=== PATIENT | male | born 1960 | race Hispanic/Latino ===

== ENCOUNTER 2017-04-22 06:34 | Observation (INO) | payer MEDICAID ==
--- NOTE | 2017-04-22 07:55 | ED PDOC ---
Arrival/HPI - General Chief Complaint: Lower Extremity Problem/Injury Time Seen by Provider: 04/22/17 07:31 - History of Present Illness Narrative History of Present Illness (Text): 04/22/17 07:35 Tyree Garcia is a 56 year old male, whose past medical history includes depression, who presents to the emergency department complaining of feeling a sensation of pins and needles to his bilateral feet since last night. Patient says symptoms began while walking home and was unable to climb up stairs due to numbness in his feet b/L. Patient confirms that he was drinking last night but states that he only drinks on occasion. Patient also takes note that his feet occasionally swells but it goes away. He says that tingling sensation has resolved. Patient denies any fever, chills, chest pain, shortness of breath, nausea, vomiting, diarrhea, urinary symptoms, back pain, neck pain, headache, dizziness, or any other complaints. PMD: Dr. Triston Thompson Time/Duration: 4-6 hours Symptom Onset: Gradual Symptom Course: Unchanged Severity Level: Mild Activities at Onset: Light Context: Home Past Medical History - Provider Review Nursing Documentation Reviewed: Yes - Musculoskeletal/Rheumatological Hx Musculoskeletal Disorders: Yes Hx Arthritis: Yes - Psychiatric Hx Anxiety: Yes Hx Depression: Yes Hx Substance Use: No Family/Social History - Physician Review Nursing Documentation Reviewed: Yes Family/Social History: No Known Family HX Smoking Status: Smoker Currrent Status Unknown Hx Alcohol Use: Yes Frequency of alcohol use: Daily Hx Substance Use: No Allergies/Home Meds Allergies/Adverse Reactions: Allergies No Known Allergies Allergy (Verified 04/22/17 06:38) Home Medications: Home Meds Medication Instructions Recorded Confirmed Amitriptyline [Elavil] 50 mg PO HS 04/22/17 04/22/17 clonazePAM [clonAZEPAM] 0.5 mg PO HS 04/22/17 04/22/17 Review of Systems - Physician Review All systems were reviewed & negative as marked: Yes - Review of Systems Constitutional: absent: Fevers, Night Sweats Eyes: absent: Vision Changes ENT: absent: Hearing Changes Respiratory: absent: SOB Cardiovascular: absent: Chest Pain Gastrointestinal: absent: Abdominal Pain Genitourinary Male: absent: Urinary Output Changes Musculoskeletal: absent: Back Pain, Neck Pain Skin: absent: Rash Neurological: Other (Numbness and "Pins and Sarah Ann" sensation to bilateral feet ) Hemo/Lymphatic: absent: Adenopathy Psychiatric: absent: Anxiety Physical Exam Vital Signs Reviewed: Yes Vital Signs Temp Pulse Resp BP Pulse Ox 04/22/17 09:05 111 H 18 127/97 H 96 04/22/17 06:55 98.3 F 103 H 17 126/67 95 Temperature: Afebrile Blood Pressure: Normal Pulse: Tachycardic Respiratory Rate: Normal Appearance: Positive for: Well-Appearing, Non-Toxic, Comfortable, Other ( Alcohol on breath) Pain Distress: None Mental Status: Positive for: Alert and Oriented X 3 - Systems Exam Head: Present: Atraumatic, Normocephalic Pupils: Present: PERRL Conjunctiva: Present: Normal Mouth: Present: Moist Mucous Membranes Pharnyx: Present: Normal. No: ERYTHEMA, EXUDATE Neck: Present: Normal Range of Motion Respiratory/Chest: Present: Clear to Auscultation, Good Air Exchange. No: Respiratory Distress, Accessory Muscle Use Cardiovascular: Present: Regular Rate and Rhythm, Normal S1, S2. No: Murmurs Abdomen: Present: Normal Bowel Sounds. No: Tenderness, Distention, Peritoneal Signs Back: Present: Normal Inspection Upper Extremity: Present: Normal Inspection. No: Cyanosis, Edema Lower Extremity: Present: Swelling (Left LE is larger than Right LE), Erythema ( There is a mild papular eyrythematous rash b/L medial shins with minimal warmth) , Other (DP and PT pulses are present b/L by doppler). No: Tenderness, Temperature Abnormalties Neurological: Present: GCS=15, CN II-XII Intact, Speech Normal Skin: Present: Rashes (Small papular rash to bilateral shins (pt says that this is chronic)), Other (Blood blister (isolated hemorrhagic bullous about 3-4 cm in diameter) to medial side of distal left pickett) Psychiatric: Present: Alert, Oriented x 3, Normal Insight, Normal Concentration Medical Decision Making ED Course and Treatment: 04/22/17 07:35 Impression: 56 year old male complaining of feeling a sensation of pins and needles to his bilateral feet since last night. Differential Diagnosis included but are not limited to: ETOH abuse vs. electrolyte abnormality vs. DVT. vs. dehydration Plan: -- Chest X-ray -- LE ultrasound -- Urinalysis -- Labs -- Folic Acid -- Reassess and disposition Progress Notes: 04/22/17 10:41 Patient with etoh on board with level 132; he denies regular alcohol use. He is clinically sober at this time. Patient with no evidence of DVT in LE and labs are unremarkable. Exam with pulses present. Also of note is the is an isolated blood blister (possibly due to friction). Remainder of exam is unremarkable. Rash is potentially chronic but given mild warmth - will d/c on cefadroxil for possible cellulitis and topical steroid for the isolated hemorrhagic bullous nd f/u with podiatry, dermatology, and medical clinic. - Lab Interpretations Lab Results: 04/22/17 08:55 04/22/17 08:55 Lab Results 04/22/17 08:55: Alcohol, Quantitative 132 H 04/22/17 08:55: Sodium 132, Potassium 4.1, Chloride 95 L, Carbon Dioxide 24, Anion Gap 17, BUN 8, Creatinine 0.6, Est GFR ( Amer) > 60, Est GFR (Non- Af Amer) > 60, Random Glucose 104, Calcium 8.7, Magnesium 1.7, Total Bilirubin 0.5, AST 43, ALT 32, Alkaline Phosphatase 81, Lactate Dehydrogenase 735 H, Total Creatine Kinase 215, Troponin I < 0.01, NT-Pro-B Natriuret Pep 117, Total Protein 7.5, Albumin 4.2, Globulin 3.3, Albumin/Globulin Ratio 1.3, Lipase 26 04/22/17 08:55: WBC 8.2, RBC 3.38 L, Hgb 10.3 L, Hct 29.0 L, MCV 85.8, MCH 30.5 , MCHC 35.5, RDW 12.3, Plt Count 156, MPV 8.8, Gran % 88.0 H, Lymph % (Auto) 6.7 L, Talbot % (Auto) 5.3, Eos % (Auto) 0.0 L, Baso % (Auto) 0.0, Gran # 7.21 H, Lymph # 0.6 L, Talbot # 0.4, Eos # 0.0, Baso # 0.00 I have reviewed the lab results: Yes - RAD Interpretation Radiology Orders: 04/22/17 07:56 CHEST TWO VIEWS (PA/LAT) [RAD] Stat 04/22/17 07:58 DUPLEX LOWER EXTRM VEIN BILAT [US] Stat - Medication Orders Current Medication Orders: Discontinued Medications Folic Acid 1 mg/ Thiamine HCl 100 mg/ Multivitamins/Vitamin C 10 ml/ Dextrose/ Sodium Chloride 1,011.2 mls @ 500 mls/hr IV ONCE ONE Stop: 04/22/17 09:59 Last Admin: 04/22/17 09:33 Dose: 500 mls/hr - Scribe Statement The provider has reviewed the documentation as recorded by the Devenibmukesh Contreras Provider Scribe Attestation: All medical record entries made by the Scribe were at my direction and personally dictated by me. I have reviewed the chart and agree that the record accurately reflects my personal performance of the history, physical exam, medical decision making, and the department course for this patient. I have also personally directed, reviewed, and agree with the discharge instructions and disposition. Disposition/Present on Arrival - Present on Arrival Any Indicators Present on Arrival: No History of DVT/PE: No History of Uncontrolled Diabetes: No Urinary Catheter: No History of Decub. Ulcer: No History Surgical Site Infection Following: None - Disposition Have Diagnosis and Disposition been Completed?: Yes Diagnosis: Tingling, Alcohol use, Rash, Blood blister Disposition: HOME/ ROUTINE Disposition Time: 10:50 Patient Plan: Discharge Condition: GOOD Additional Instructions: Take the medication as prescribed. Follow up with podiatry, dermatology, and in the medical clinic. Maintain sd wrap at the area of the blood blister to avoid friction. Avoid alcohol use. Return to the emergency department if any new concerning symptoms. Prescriptions: Cefadroxil [Duricef] 1 cap PO BID #20 cap Triamcinolone 0.1% [Triamcinolone 0.1% Cream] 1 cre TP TID #30 gm Referrals: Triston Thompson MD [Primary Care Provider] - Follow up with primary [facility] at [facility] [Outside] - Follow up with primary Lisa Negrete MD [Staff Provider] - Follow up with primary Kya Beltran DPM [Staff Provider] - Follow up with primary Forms: [employer] (Macedonian)
[2017-04-22] MEDS ORDERED: Folic Acid 1 MG, Thiamine 100 MG, Multivitamin (MVI) 10 ML in Dextrose 5%/0.45% NS 1,00... IV ONE (07:58)
[2017-04-22 09:07] LABS: GRAN # 7.21 (1.4-6.5); HEMOGLOBIN 10.3 gm/dL (14.0-18.0); LYMPH # 0.6 (1.2-3.4); LYMPH % 6.7 % (22.0-35.0); MEAN CELL VOLUME 85.8 fL (80.0-105.0); MEAN CORPUSCULAR HEMOGLOBIN 30.5 pg (25.0-35.0); MEAN CORPUSCULAR HGB CONC 35.5 g/dl (31.0-37.0); MEAN PLATELET VOLUME 8.8 fl (7.0-11.0); MONO # 0.4 (0.1-0.6); MONO % 5.3 % (1.0-6.0); PLATELET COUNT 156 10^3/uL (120.0-450.0); RBC 3.38 10^6/uL (3.5-6.1); RED CELL DISTRIBUTION WIDTH 12.3 % (11.5-14.5); WHITE BLOOD COUNT 8.2 10^3/ul (4.5-11.0)
--- NOTE | 2017-04-22 09:29 | US ---
HISTORY: Leg pain and swelling. Evaluate for DVT PHYSICIAN(S): Abhilash Bill MD. TECHNIQUE: Duplex sonography and color-flow Doppler with graded compression were used to evaluate the deep venous systems of both lower extremities. The calf veins are not well visualized due to edema FINDINGS: The visualized deep venous systems of both lower extremities are sonographically normal and compressible. Normal wave forms and augmentation are seen. There is no sonographic evidence for deep venous thrombosis in the visualized segments of both lower extremities. IMPRESSION: No sonographic evidence for deep venous thrombosis in the visualized segments of both lower extremities. Limited study
[2017-04-22 09:33] LABS: ALB/GLOB RATIO 1.3 (1.1-1.8); ALBUMIN 4.2 g/dL (3.0-4.8); ALT/SGPT 32 U/L (7-56); AST/SGOT 43 U/L (15-59); BLOOD UREA NITROGEN 8 mg/dL (7-21); CALCIUM 8.7 mg/dL (8.4-10.5); GFR AFRICAN-AMERICAN > 60; GFR NON-AFRICAN AMERICAN > 60; LIPASE 26 U/L (23-300); MAGNESIUM 1.7 mg/dL (1.7-2.2)
[2017-04-22 09:44] LABS: B-TYPE NATRIURETIC PEPTIDE 117 pg/mL (0-450)
[2017-04-22 10:01] LABS: TROPONIN I < 0.01 ng/mL
--- NOTE | 2017-04-22 10:26 | RAD ---
HISTORY: LE swelling COMPARISON: No prior. TECHNIQUE: Chest PA and lateral FINDINGS: LUNGS: No active pulmonary disease. PLEURA: No significant pleural effusion identified. No pneumothorax apparent. CARDIOVASCULAR: Normal. OSSEOUS STRUCTURES: No significant abnormalities. VISUALIZED UPPER ABDOMEN: Normal. OTHER FINDINGS: None. IMPRESSION: No active disease.
[2017-04-22 10:50] LABS: URINE BILIRUBIN NEGATIVE (NEGATIVE); URINE BLOOD NEGATIVE (NEGATIVE); URINE GLUCOSE (UA) NEGATIVE (NEGATIVE); URINE LEUKOCYTE ESTERASE NEGATIVE Leu/uL (NEGATIVE); URINE NITRATE NEGATIVE (NEGATIVE); URINE PROTEIN NEGATIVE mg/dL (<30 mg/dL); URINE UROBILINOGEN 0.2 E.U./dL (<1 E.U./dL)
[2017-04-22 10:51] LABS: URINE APPEARANCE CLEAR (CLEAR); URINE COLOR LIGHT YELLOW (YELLOW)
[2017-04-22] MEDS ORDERED: Oxycodone/Acetaminophen 5/325 mg Tab PO STA (12:18)
[2017-04-22] MEDS ORDERED: Sodium Chloride 0.9% 1,000 ML IV STA (15:51)
[2017-04-22] MEDS ORDERED: cefTRIAXone 1 gm 1 GM/100 ML BAG IV STA (15:57)
[2017-04-22] MEDS ORDERED: Vancomycin 1gm in NS 250ml 1 GM/250 ML BAG IVPB STA (16:06)
--- NOTE | 2017-04-22 20:41 | CARD ---
APPROVED REPORT EKG Measurement Heart [id number] <Conclusion> Sinus tachycardia with PVCs Right bundle branch block Abnormal ECG
[2017-04-22 22:03] VITALS: BMI 24.4
[2017-04-22] MEDS ORDERED: Pneumococcal 23-Valent Vaccine IM ONE (22:03)
[2017-04-23 07:21] LABS: BASO # 0.01 K/mm3 (0.0-2.0); BASO % 0.2 % (0.0-3.0); EOS % 0.6 % (1.5-5.0); GRAN # 2.97 (1.4-6.5); GRAN % 60.1 % (50.0-68.0); HEMOGLOBIN 9.3 gm/dL (14.0-18.0); LYMPH # 1.1 (1.2-3.4); LYMPH % 21.3 % (22.0-35.0); MEAN CELL VOLUME 87.1 fL (80.0-105.0); MEAN CORPUSCULAR HEMOGLOBIN 30.1 pg (25.0-35.0); MEAN CORPUSCULAR HGB CONC 34.6 g/dl (31.0-37.0); MEAN PLATELET VOLUME 9.5 fl (7.0-11.0); MONO # 0.9 (0.1-0.6); MONO % 17.8 % (1.0-6.0); PLATELET COUNT 152 10^3/uL (120.0-450.0); RBC 3.09 10^6/uL (3.5-6.1); RED CELL DISTRIBUTION WIDTH 12.6 % (11.5-14.5); WHITE BLOOD COUNT 4.9 10^3/ul (4.5-11.0)
[2017-04-23 08:09] LABS: ALB/GLOB RATIO 1.2 (1.1-1.8); ALBUMIN 3.6 g/dL (3.0-4.8); ALT/SGPT 28 U/L (7-56); AST/SGOT 32 U/L (15-59); BLOOD UREA NITROGEN 10 mg/dL (7-21); CALCIUM 8.9 mg/dL (8.4-10.5); GFR AFRICAN-AMERICAN > 60; GFR NON-AFRICAN AMERICAN > 60; MAGNESIUM 1.9 mg/dL (1.7-2.2)
[2017-04-23] MEDS: Multivitamin Therapeutic Tab PO SCH (08:35)
[2017-04-23] MEDS: Vancomycin 1gm in NS 250ml 1 GM/250 ML BAG IVPB SCH (10:25)
[2017-04-23] MEDS: Potassium & Sodium Phosphate PO SCH ×2 (10:25→18:06)
[2017-04-23] MEDS: Ampicillin/Sulbactam 3 GM in Sodium Chloride 0.9% 100 ML IVPB SCH ×3 (12:30→23:27)
--- NOTE | 2017-04-23 13:54 | CP.PCM.CON ---
Past Patient History - Past Social History Smoking Status: Former Smoker - CARDIAC Hx Cardiac Disorders: No - PULMONARY Hx Respiratory Disorders: Yes (SMOKED CIGARETTES USED TO SMOKE PPD LASTS FOR 3 D.) - NEUROLOGICAL Hx Neurological Disorder: No - HEENT Hx HEENT Problems: No - RENAL Hx Chronic Kidney Disease: No - ENDOCRINE/METABOLIC Hx Endocrine Disorders: No - HEMATOLOGICAL/ONCOLOGICAL Hx Blood Disorders: No - INTEGUMENTARY Hx Dermatological Problems: Yes Other/Comment: 04-22-17 BILATERAL LEG EDEMA MORE TO LEFT. PT HAD A MECHANICAL FALL.TRIPPED AND FELL. LEFT LEG EDEMA +3 PITTING.WITH MULTIPLE LARGE FLUID FILLED BLISTER TO LOWER PART OF LEG AND BALLESTEROS BONE FRONT AND BACK. INTACT LARGE BLISTER. ONE HAS OPENED COVERED WITH NON STICK DRESSING. RIGHT LEG EDEMA +2 .BILATERAL LEG HAS MULTIPLE REDSPOTS TO SKIN AND HAS BROWNISH SKIN DISCOLORATION. - MUSCULOSKELETAL/RHEUMATOLOGICAL Hx Musculoskeletal Disorders: Yes Hx Arthritis: Yes Hx Falls: Yes Hx Fractures: Yes (RIGHT FOOT HAS A PLATE FROM FALLING IN THE SNOW.) Hx Unsteady Gait: Yes - GASTROINTESTINAL Hx Gastrointestinal Disorders: No - GENITOURINARY/GYNECOLOGICAL Hx Genitourinary Disorders: No - PSYCHIATRIC Hx Psychophysiologic Disorder: Yes (DRINKS RHUM AND COKE,DRINKS OCCASIONALLY TO DAILY.SMOKED CIGARETTES,HEROINE) Hx Anxiety: Yes Hx Depression: Yes Hx Substance Use: Yes (HEROINE ABUSE-ON METH PROGRAM FOR 20 YRS.[facility]FAITH [place] ON METH 35 MG.) Other/Comment: PT ON METH PROGRAM IN [place] ON 35 MG.HAS BEEN THERE FOR 20 YRS. - SURGICAL HISTORY Hx Surgeries: Yes (RIGHT LEG ,HAS A PLATE.) Meds Allergies/Adverse Reactions: Allergies Allergy/AdvReac Type Severity Reaction Status Date / Time No Known Allergies Allergy Verified 04/22/17 19:40 - Medications Medications: Current Medications Amitriptyline HCl (Elavil) 50 mg PO HS SANTY Clonazepam (Klonopin) 0.5 mg PO HS SANTY PRN Reason: Protocol Folic Acid (Folic Acid) 1 mg PO DAILY SANTY Last Admin: 04/23/17 10:24 Dose: 1 mg Vancomycin HCl (Vancomycin 1gm) 1 gm in 250 mls @ 167 mls/hr IVPB DAILY SANTY PRN Reason: Protocol Last Admin: 04/23/17 10:25 Dose: 167 mls/hr Ampicillin Sodium/Sulbactam (Sodium 3 gm/ Sodium Chloride) 100 mls @ 200 mls/ hr IVPB Q6 SANTY PRN Reason: Protocol Last Admin: 04/23/17 12:30 Dose: 200 mls/hr Lorazepam (Ativan) 1 mg IVP Q4H PRN; Protocol PRN Reason: Symptoms of alcohol withdrawl Methadone HCl 30 mg/ Methadone (HCl 5 mg) 35 mg PO DAILY [facility] Last Admin: 04/23/17 13:51 Dose: Not Given Multivitamins (Thera Tab) 1 tab PO 0800 [facility] Last Admin: 04/23/17 08:35 Dose: Not Given Potassium Phos/Sodium Phos (Neutra-Phos) 1 pkt PO BID [facility] Last Admin: 04/23/17 10:25 Dose: 1 pkt Thiamine HCl (Vitamin B1 Tab) 100 mg PO DAILY [facility] Last Admin: 04/23/17 10:25 Dose: 100 mg Results - Vital Signs Recent Vital Signs: Last Vital Signs Temp 99.5 F 04/23/17 06:00 Pulse 116 H 04/23/17 06:00 Resp 18 04/23/17 06:00 BP 150/95 H 04/23/17 06:00 Pulse Ox 95 04/23/17 06:00 - Labs Result Diagrams: 04/23/17 06:30 04/23/17 06:30 Labs: Laboratory Results - last 24 hr 04/23/17 04/23/17 06:30 06:30 WBC 4.9 D RBC 3.09 L Hgb 9.3 L Hct 26.9 L MCV 87.1 MCH 30.1 MCHC 34.6 RDW 12.6 Plt Count 152 MPV 9.5 Gran % 60.1 Lymph % (Auto) 21.3 L [place] % (Auto) 17.8 H Eos % (Auto) 0.6 L Baso % (Auto) 0.2 Gran # 2.97 Lymph # 1.1 L [place] # 0.9 H Eos # 0.0 Baso # 0.01 Sodium 136 Potassium 4.2 Chloride 100 Carbon Dioxide 25 Anion Gap 15 BUN 10 Creatinine 0.7 Est GFR ( Amer) > 60 Est GFR (Non-Af Amer) > 60 Random Glucose 113 H Calcium 8.9 Phosphorus 2.2 L Magnesium 1.9 Total Bilirubin 0.7 AST 32 ALT 28 Alkaline Phosphatase 73 Total Protein 6.6 Albumin 3.6 Globulin 3.0 Albumin/Globulin Ratio 1.2
[2017-04-23] MEDS: Morphine 2 mg/ml ISec IM PRN ×2 (15:21→21:19)
--- NOTE | 2017-04-23 15:55 | RAD ---
PROCEDURE: Left ankle dated 04/15/2017 Three views of the left ankle performed. HISTORY: Status post fall. COMPARISON: None FINDINGS: BONES: The current study reveals comminuted intra-articular fractures of the distal right tibia and fibula with surrounding soft tissue swelling. There is are tilting of the the tibiotalar articulation. . Consider followup CT scan of the left ankle to exclude additional fractures including fracture of the talus. JOINTS: As above SOFT TISSUES: Diffuse bilateral soft tissue swelling OTHER FINDINGS: None. IMPRESSION: Comminuted intra-articular fractures of the distal right tibia and fibula with surrounding soft tissue swelling. There is are tilting of the the tibiotalar articulation. . Consider followup CT scan of the left ankle to exclude additional fractures including fracture of the talus. . Surrounding bilateral soft tissue swelling.
--- NOTE | 2017-04-23 17:57 | CP.PCM.PCO ---
Physician Communication Note - Physician Communication Note Physician Communication Note: Spoke to Dr. Jarret Cormier to get in touch with Podiatry for heel stabilizer.
--- NOTE | 2017-04-23 22:22 | CP.PCM.HP ---
<ARELIS RENE - Last Filed: 04/23/17 22:11> History of Present Illness - History of Present Illness History of Present Illness: CC: Leg parathesias/RLE swelling HPI: Mr. Smith is a 56 year old male, whose past medical history includes depression, alcohol abuse and IVDU, presented to the [facility] ED complaining of a sensation of pins and needles to his feet bilaterally since last night. Patient says symptoms began while walking home and was unable to climb up stairs due to numbness. Patient confirms that he was drinking last night but states that he only drinks on occasion. Patient also takes note that his feet occasionally swell but that it normally goes away without intervention. Shortly after presenting, patient stated that tingling sensation has resolved and ED attempted discharge. During this process, patient became weak and tachycardic with increasing pain to his lower right extremity. He admitted to being on methadone, per protocol with his methadone program in [place]. Initially this was thought to be possible RLE cellulitis so patient was started on vancomycin and rocephin, as well as his normal dose of methadone. He was admitted to telemetry for observation. Currently, patient complains of RLE extremity pain that is moderately controlled with IV pain medication. He has no other complaints at this time. Patient denies any fever, chills, chest pain, shortness of breath, nausea, vomiting, diarrhea, urinary symptoms, back pain, neck pain, headache, dizziness , or any other complaints. PMH: Depression, Alcohol Abuse, IVDU (2 years clean according to patient) PSH: None FamHx: non-contributory SocHX: non-smoker, significant alcohol use, former IVDU Allergies: NKDA Home Meds: Elavil and Methadone Present on Admission - Present on Admission Any Indicators Present on Admission: No Review of Systems - Review of Systems Review of Systems: Please refer to HPI Past Patient History - Past Social History Smoking Status: Former Smoker - CARDIAC Hx Cardiac Disorders: No - PULMONARY Hx Respiratory Disorders: Yes (SMOKED CIGARETTES USED TO SMOKE PPD LASTS FOR 3 D.) - NEUROLOGICAL Hx Neurological Disorder: No - HEENT Hx HEENT Problems: No - RENAL Hx Chronic Kidney Disease: No - ENDOCRINE/METABOLIC Hx Endocrine Disorders: No - HEMATOLOGICAL/ONCOLOGICAL Hx Blood Disorders: No - INTEGUMENTARY Hx Dermatological Problems: Yes Other/Comment: 04-22-17 BILATERAL LEG EDEMA MORE TO LEFT. PT HAD A MECHANICAL FALL.TRIPPED AND FELL. LEFT LEG EDEMA +3 PITTING.WITH MULTIPLE LARGE FLUID FILLED BLISTER TO LOWER PART OF LEG AND BALLESTEROS BONE FRONT AND BACK. INTACT LARGE BLISTER. ONE HAS OPENED COVERED WITH NON STICK DRESSING. RIGHT LEG EDEMA +2 .BILATERAL LEG HAS MULTIPLE REDSPOTS TO SKIN AND HAS BROWNISH SKIN DISCOLORATION. - MUSCULOSKELETAL/RHEUMATOLOGICAL Hx Musculoskeletal Disorders: Yes Hx Arthritis: Yes Hx Falls: Yes Hx Fractures: Yes (RIGHT FOOT HAS A PLATE FROM FALLING IN THE SNOW.) Hx Unsteady Gait: Yes - GASTROINTESTINAL Hx Gastrointestinal Disorders: No - GENITOURINARY/GYNECOLOGICAL Hx Genitourinary Disorders: No - PSYCHIATRIC Hx Psychophysiologic Disorder: Yes (DRINKS RHUM AND COKE,DRINKS OCCASIONALLY TO DAILY.SMOKED CIGARETTES,HEROINE) Hx Anxiety: Yes Hx Depression: Yes Hx Substance Use: Yes (HEROINE ABUSE-ON METH PROGRAM FOR 20 YRS.[facility] ON METH 35 MG.) Other/Comment: PT ON METH PROGRAM IN [facility] ON 35 MG.HAS BEEN THERE FOR 20 YRS. - SURGICAL HISTORY Hx Surgeries: Yes (RIGHT LEG ,HAS A PLATE.) Meds Allergies/Adverse Reactions: Allergies Allergy/AdvReac Type Severity Reaction Status Date / Time No Known Allergies Allergy Verified 04/22/17 19:40 Physical Exam - Constitutional Appears: No Acute Distress - Head Exam Head Exam: NORMAL INSPECTION, NORMOCEPHALIC - Eye Exam Eye Exam: EOMI, Normal appearance - ENT Exam ENT Exam: Mucous Membranes Moist, Normal Exam - Neck Exam Neck exam: Positive for: Full Rom, Normal Inspection. Negative for: Lymphadenopathy - Respiratory Exam Respiratory Exam: Clear to Auscultation Bilateral, NORMAL BREATHING PATTERN. absent: Rales, Rhonchi, Wheezes, Respiratory Distress - Cardiovascular Exam Cardiovascular Exam: REGULAR RHYTHM, RRR, +S1, +S2. absent: Tachycardia, Systolic Murmur - GI/Abdominal Exam GI & Abdominal Exam: Normal Bowel Sounds. absent: Distended, Firm, Tenderness - Extremities Exam Extremities exam: Positive for: normal capillary refill, tenderness, pedal pulses present Additional comments: significant edema and crepitus to distal lower right extremity spanning from lower third of calf to phalanges with several overlying erythematous and bullous vesicles overlying site - Neurological Exam Neurological exam: Abnormal Gait, Alert, Oriented x3 - Psychiatric Exam Psychiatric exam: Normal Affect, Normal Mood - Skin Skin Exam: Dry, Intact, Vesicles, Warm Results - Vital Signs Recent Vital Signs: Last Vital Signs Temp 98.8 F 04/23/17 20:25 Pulse 130 H 04/23/17 22:00 Resp 20 04/23/17 20:25 BP 159/94 H 04/23/17 22:00 Pulse Ox 98 04/23/17 16:11 - Labs Result Diagrams: 04/23/17 06:30 04/23/17 06:30 Labs: Laboratory Results - last 24 hr 04/23/17 04/23/17 06:30 06:30 WBC 4.9 D RBC 3.09 L Hgb 9.3 L Hct 26.9 L MCV 87.1 MCH 30.1 MCHC 34.6 RDW 12.6 Plt Count 152 MPV 9.5 Gran % 60.1 Lymph % (Auto) 21.3 L Reynolds % (Auto) 17.8 H Eos % (Auto) 0.6 L Baso % (Auto) 0.2 Gran # 2.97 Lymph # 1.1 L Reynolds # 0.9 H Eos # 0.0 Baso # 0.01 Sodium 136 Potassium 4.2 Chloride 100 Carbon Dioxide 25 Anion Gap 15 BUN 10 Creatinine 0.7 Est GFR ( Amer) > 60 Est GFR (Non-Af Amer) > 60 Random Glucose 113 H Calcium 8.9 Phosphorus 2.2 L Magnesium 1.9 Total Bilirubin 0.7 AST 32 ALT 28 Alkaline Phosphatase 73 Total Protein 6.6 Albumin 3.6 Globulin 3.0 Albumin/Globulin Ratio 1.2 Assessment & Plan - Assessment and Plan (Free Text) Assessment: Mr. Smith is a 56 year old male, whose past medical history includes depression, alcohol abuse and IVDU, presented to the [facility] ED complaining of a sensation of pins and needles to his feet bilaterally since last night. Plan: 1. RLE tenderness/swelling -orthopedics consulted, all recommendations appreciated -podiatry consulted, all recommendations appreciated -LE Doppler showed no DVT's -Ankle xray showed comminuted intra-articular fractures of the distal right tibia and fibula with surrounding soft tissue swelling -CT of RLE ordered to r/o additional fractures, results pending -IV vanc and unasyn for cellulitis coverage -morphine for pain control -will await orthopedic/podiatry surgical recommendations for further management 2. History of alcohol abuse/withdrawal -Ativan 1mg IVP Q4 PRN and Klonopin 0.5mg PO HS -folic acid, thiamine, MV -[facility]WA protocols 3. History of IVDU/addiction -cont methadone 35mg daily, per protocol 4. History of depression -cont home elavil 5. GI prophylaxis -Pepcid Patient seen and case discussed in detail with attending, Dr. Noonan. - Date & Time Date: 04/23/17 Time: 22:26 Decision To Admit - Pt Status Changed To: Hospital Disposition Of: Observation - . Bed Request Type: Remote Telemetry <Saran ALEJANDRA,Óscar - Last Filed: 04/24/17 17:12> Results - Vital Signs Recent Vital Signs: Last Vital Signs Temp 98.9 F 04/24/17 08:11 Pulse 103 H 04/24/17 08:11 Resp 18 04/24/17 08:11 BP 110/74 04/24/17 08:11 Pulse Ox 95 04/24/17 08:11 - Labs Result Diagrams: 04/24/17 06:00 04/24/17 06:00 Labs: Laboratory Results - last 24 hr 04/24/17 04/24/17 06:00 06:00 WBC 6.9 D RBC 2.98 L Hgb 8.9 L Hct 26.5 L MCV 88.9 MCH 29.9 MCHC 33.6 RDW 12.6 Plt Count 162 MPV 9.7 Gran % 52.5 Lymph % (Auto) 26.2 Reynolds % (Auto) 18.4 H Eos % (Auto) 2.6 Baso % (Auto) 0.3 Gran # 3.64 Lymph # 1.8 Reynolds # 1.3 H Eos # 0.2 Baso # 0.02 Sodium 133 Potassium 4.0 Chloride 99 Carbon Dioxide 25 Anion Gap 13 BUN 8 Creatinine 0.7 Est GFR ( Amer) > 60 Est GFR (Non-Af Amer) > 60 Random Glucose 108 Calcium 8.8 Total Bilirubin 0.8 AST 34 ALT 31 Alkaline Phosphatase 63 Total Protein 6.9 Albumin 3.8 Globulin 3.1 Albumin/Globulin Ratio 1.2 Attending/Attestation - Attestation I have personally seen and examined this patient.: Yes I have fully participated in the care of the patient.: Yes I have reviewed all pertinent clinical information: Yes Notes (Text): 04/24/17 17:08 Patient was seen and examined with medical appointment clerk. Agreed with resident assessment and plan. 56 year old male with PMH of depression, alcohol abuse and drug abuse on methadone therapy was admitted with history of leg pain, left leg swelling is found to have left ankle and foot fracture, as well as cellulitis of left leg, no sign of alcohol withdrawal at this time.We will follow up Podiatry and ortho consultation.We will continue IV unasyn and will watch patient for alcohol withdrawal. Management plan was discussed in detail with patient Education was provided.
--- NOTE | 2017-04-23 22:51 | CT ---
EXAM: CT Left Lower Extremity Without Intravenous Contrast, Ankle CLINICAL HISTORY: 57 years old, male; Abnormal findings; Abnormal imaging study; FX left ankle xray; Additional info: L ankle pilon fracture, CT w/o cont, + 3d recons TECHNIQUE: Axial computed tomography images of the left ankle without intravenous contrast. This CT exam was performed using one or more of the following dose reduction techniques: automated exposure control, adjustment of the mA and/or kV according to patient size, and/or use of iterative reconstruction technique. Coronal and sagittal reformatted images were created and reviewed. EXAM DATE/TIME: 04/23/2017 8:06 PM COMPARISON: DX - ANKLE LEFT 3 VIEWS ROUTINE 04/23/2017 8:25:16 AM FINDINGS: There is subcutaneous soft tissue swelling. There is severe comminuted right fracture of the distal tibia and fibula involving the articular surface ( Pillon 3). There are numerable displaced fragments. There is a large 3 cm cortical fragment angulated along the medial aspect the tibia. Despite the severe adjacent fractures, the talus appear essentially intact. There is a tiny osseous fragment along the lateral aspect of the talus image 43 that may be a talar origin although could certainly represent an inferiorly displaced fragment from the comminuted tibial or fibular fractures. The calcaneus is intact. There is a fracture through the navicular bone not significantly displaced. There is a fracture through the cuboid not significantly displaced. No fractures identified in the visualized portions of the metatarsals. IMPRESSION: Severe comminuted displaced fracture of the distal tibia and distal fibula involving the articular surface (pilon fracture type III). Fractures of the navicular bone and cuboid not significantly displaced.
[2017-04-24] MEDS: Ampicillin/Sulbactam 3 GM in Sodium Chloride 0.9% 100 ML IVPB SCH ×3 (05:25→18:01)
[2017-04-24 07:06] LABS: BASO # 0.02 K/mm3 (0.0-2.0); BASO % 0.3 % (0.0-3.0); EOS # 0.2 (0.0-0.7); EOS % 2.6 % (1.5-5.0); GRAN # 3.64 (1.4-6.5); GRAN % 52.5 % (50.0-68.0); HEMOGLOBIN 8.9 gm/dL (14.0-18.0); LYMPH # 1.8 (1.2-3.4); LYMPH % 26.2 % (22.0-35.0); MEAN CELL VOLUME 88.9 fL (80.0-105.0); MEAN CORPUSCULAR HEMOGLOBIN 29.9 pg (25.0-35.0); MEAN CORPUSCULAR HGB CONC 33.6 g/dl (31.0-37.0); MEAN PLATELET VOLUME 9.7 fl (7.0-11.0); MONO # 1.3 (0.1-0.6); MONO % 18.4 % (1.0-6.0); PLATELET COUNT 162 10^3/uL (120.0-450.0); RBC 2.98 10^6/uL (3.5-6.1); RED CELL DISTRIBUTION WIDTH 12.6 % (11.5-14.5); WHITE BLOOD COUNT 6.9 10^3/ul (4.5-11.0)
[2017-04-24 07:15] LABS: ALB/GLOB RATIO 1.2 (1.1-1.8); ALBUMIN 3.8 g/dL (3.0-4.8); ALT/SGPT 31 U/L (7-56); AST/SGOT 34 U/L (15-59); BLOOD UREA NITROGEN 8 mg/dL (7-21); CALCIUM 8.8 mg/dL (8.4-10.5); GFR AFRICAN-AMERICAN > 60; GFR NON-AFRICAN AMERICAN > 60
[2017-04-24] MEDS: Multivitamin Therapeutic Tab PO SCH (08:24)
[2017-04-24] MEDS: Morphine 2 mg/ml ISec IVP PRN ×4 (08:59→22:31)
--- NOTE | 2017-04-24 09:46 | CP.PCM.CON ---
<Champ Garcia - Last Filed: 04/24/17 09:42> History of Present Illness - History of Present Illness History of Present Illness: 57 y/o male with PMHx of Depression, Alcohol Abuse, IVDU seen at bedside for left extremity pilon fracture. Pt is AAOx3 and is in NAD. Pt [place] the injury. Pt states that he has been staying off his leg since then. Pt states that his dressing was changed yesterday. Pt states that he has a lot of pain when dressing is changed but does not feel any discomfort otherwise. Pt denies of any recent F/N/V/C/SOB. Pt denies of any other pedal complains at this time. PMH: Depression, Alcohol Abuse, IVDU (2 years clean according to patient) PSH: None FamHx: non-contributory SocHX: non-smoker, significant alcohol use, former IVDU Allergies: NKDA Home Meds: Elavil and Methadone Review of Systems - Constitutional Constitutional: As Per HPI Past Patient History - Past Social History Smoking Status: Former Smoker - CARDIAC Hx Cardiac Disorders: No - PULMONARY Hx Respiratory Disorders: Yes (SMOKED CIGARETTES USED TO SMOKE PPD LASTS FOR 3 D.) - NEUROLOGICAL Hx Neurological Disorder: No - HEENT Hx HEENT Problems: No - RENAL Hx Chronic Kidney Disease: No - ENDOCRINE/METABOLIC Hx Endocrine Disorders: No - HEMATOLOGICAL/ONCOLOGICAL Hx Blood Disorders: No - INTEGUMENTARY Hx Dermatological Problems: Yes Other/Comment: 04-22-17 BILATERAL LEG EDEMA MORE TO LEFT. PT HAD A MECHANICAL FALL.TRIPPED AND FELL. LEFT LEG EDEMA +3 PITTING.WITH MULTIPLE LARGE FLUID FILLED BLISTER TO LOWER PART OF LEG AND BALLESTEROS BONE FRONT AND BACK. INTACT LARGE BLISTER. ONE HAS OPENED COVERED WITH NON STICK DRESSING. RIGHT LEG EDEMA +2 .BILATERAL LEG HAS MULTIPLE REDSPOTS TO SKIN AND HAS BROWNISH SKIN DISCOLORATION. - MUSCULOSKELETAL/RHEUMATOLOGICAL Hx Musculoskeletal Disorders: Yes Hx Arthritis: Yes Hx Falls: Yes Hx Fractures: Yes (RIGHT FOOT HAS A PLATE FROM FALLING IN THE SNOW.) Hx Unsteady Gait: Yes - GASTROINTESTINAL Hx Gastrointestinal Disorders: No - GENITOURINARY/GYNECOLOGICAL Hx Genitourinary Disorders: No - PSYCHIATRIC Hx Psychophysiologic Disorder: Yes (DRINKS RHUM AND COKE,DRINKS OCCASIONALLY TO DAILY.SMOKED CIGARETTES,HEROINE) Hx Anxiety: Yes Hx Depression: Yes Hx Substance Use: Yes (HEROINE ABUSE-ON METH PROGRAM FOR 20 YRS.[facility] [place] ON METH 35 MG.) Other/Comment: PT ON METH PROGRAM IN [place] ON 35 MG.HAS BEEN THERE FOR 20 YRS. - SURGICAL HISTORY Hx Surgeries: Yes (RIGHT LEG ,HAS A PLATE.) Meds Allergies/Adverse Reactions: Allergies Allergy/AdvReac Type Severity Reaction Status Date / Time No Known Allergies Allergy Verified 04/22/17 19:40 - Medications Medications: Current Medications Amitriptyline HCl (Elavil) 50 mg PO HS [facility] Last Admin: 04/23/17 21:19 Dose: 50 mg Clonazepam (Klonopin) 0.5 mg PO HS [facility] PRN Reason: Protocol Last Admin: 04/23/17 21:19 Dose: 0.5 mg Docusate Sodium (Colace) 100 mg PO BID [facility] Famotidine (Pepcid) 20 mg IVP DAILY [facility] Folic Acid (Folic Acid) 1 mg PO DAILY [facility] Last Admin: 04/23/17 10:24 Dose: 1 mg Vancomycin HCl (Vancomycin 1gm) 1 gm in 250 mls @ 167 mls/hr IVPB DAILY [facility] PRN Reason: Protocol Last Admin: 04/23/17 10:25 Dose: 167 mls/hr Ampicillin Sodium/Sulbactam (Sodium 3 gm/ Sodium Chloride) 100 mls @ 200 mls/ hr IVPB Q6 [facility] PRN Reason: Protocol Last Admin: 04/24/17 05:25 Dose: 200 mls/hr Lorazepam (Ativan) 1 mg IVP Q4H PRN; Protocol PRN Reason: Symptoms of alcohol withdrawl Methadone HCl 30 mg/ Methadone (HCl 5 mg) 35 mg PO DAILY [facility] Last Admin: 04/23/17 13:51 Dose: Not Given Morphine Sulfate (Morphine) 2 mg IVP Q4H PRN PRN Reason: Pain, severe (8-10) Last Admin: 04/24/17 08:59 Dose: 2 mg Multivitamins (Thera Tab) 1 tab PO 0800 [facility] Last Admin: 04/24/17 08:24 Dose: 1 tab Potassium Phos/Sodium Phos (Neutra-Phos) 1 pkt PO BID [facility] Last Admin: 04/23/17 18:06 Dose: 1 pkt Thiamine HCl (Vitamin B1 Tab) 100 mg PO DAILY [facility] Last Admin: 04/23/17 10:25 Dose: 100 mg Physical Exam - Constitutional Appears: Well, Non-toxic, No Acute Distress - Extremities Exam Additional comments: Left Lower Extremity Focused: VASC: Unable to obtain DP/PT pulses secondary to severe non-pitting edema, sero- sanguineous drainage noted from the hyperpigmented fracture bullae on the medial aspect of the left ankle as well as the lateral aspect of the ankle, fracture bullae noted on the dorsum of the foot, skin appears to be tenting on the left ankle and dorsum of the left foot, JEWELRY CUTTER: < 3 sec to all 5 digits, TG: warm to warm b/l DERM: No open lesions noted, hyperpigmented bullae noted on the medial and lateral aspect of the left ankle as well as dorsum of the left foot, mild erythema noted on the left lower extremity, No clinical suspicion of infection noted at this time NEURO: Protective sensation slightly diminished ORTHO: severe tenderness on palpation of left ankle and dorsum of the foot, unable to provide ROM secondary to pain and guarding - Psychiatric Exam Psychiatric exam: Normal Affect, Normal Mood Results - Vital Signs Recent Vital Signs: Last Vital Signs Temp 98.9 F 04/24/17 08:11 Pulse 103 H 04/24/17 08:11 Resp 18 04/24/17 08:11 BP 110/74 04/24/17 08:11 Pulse Ox 95 04/24/17 08:11 - Labs Result Diagrams: 04/24/17 06:00 04/24/17 06:00 Labs: Laboratory Results - last 24 hr 04/24/17 04/24/17 06:00 06:00 WBC 6.9 D RBC 2.98 L Hgb 8.9 L Hct 26.5 L MCV 88.9 MCH 29.9 MCHC 33.6 RDW 12.6 Plt Count 162 MPV 9.7 Gran % 52.5 Lymph % (Auto) 26.2 Hayes % (Auto) 18.4 H Eos % (Auto) 2.6 Baso % (Auto) 0.3 Gran # 3.64 Lymph # 1.8 Hayes # 1.3 H Eos # 0.2 Baso # 0.02 Sodium 133 Potassium 4.0 Chloride 99 Carbon Dioxide 25 Anion Gap 13 BUN 8 Creatinine 0.7 Est GFR ( Amer) > 60 Est GFR (Non-Af Amer) > 60 Random Glucose 108 Calcium 8.8 Total Bilirubin 0.8 AST 34 ALT 31 Alkaline Phosphatase 63 Total Protein 6.9 Albumin 3.8 Globulin 3.1 Albumin/Globulin Ratio 1.2 Assessment & Plan - Assessment and Plan (Free Text) Assessment: 57 y/o male seen at bedside for left lower extremity pilon fracture Plan: Pt seen and evaluated with Dr. Granados Vitals and labs reviewed (afebrile, WBC @ 6.9) Bullae drained using sterile instruments Maxorb, 4x4, ABD, Kerlix applied to the wound; Fiore compression applied; Posterior splint applied to the LLE Pt tolerated the procedure well Pt is being followed by an orthopedic surgeon Dr. Jarret Painter Podiatry will follow patient for daily wound care while patient is in house Thank you for the podiatry consult - Date & Time Date: 04/24/17 Time: 10:02 <Eliot Granados - Last Filed: 04/24/17 10:27> Meds - Medications Medications: Current Medications Amitriptyline HCl (Elavil) 50 mg PO HS [facility] Last Admin: 04/23/17 21:19 Dose: 50 mg Clonazepam (Klonopin) 0.5 mg PO HS [facility] PRN Reason: Protocol Last Admin: 04/23/17 21:19 Dose: 0.5 mg Docusate Sodium (Colace) 100 mg PO BID [facility] Famotidine (Pepcid) 20 mg IVP DAILY [facility] Folic Acid (Folic Acid) 1 mg PO DAILY [facility] Last Admin: 04/23/17 10:24 Dose: 1 mg Vancomycin HCl (Vancomycin 1gm) 1 gm in 250 mls @ 167 mls/hr IVPB DAILY [facility] PRN Reason: Protocol Last Admin: 04/23/17 10:25 Dose: 167 mls/hr Ampicillin Sodium/Sulbactam (Sodium 3 gm/ Sodium Chloride) 100 mls @ 200 mls/ hr IVPB Q6 [facility] PRN Reason: Protocol Last Admin: 04/24/17 05:25 Dose: 200 mls/hr Lorazepam (Ativan) 1 mg IVP Q4H PRN; Protocol PRN Reason: Symptoms of alcohol withdrawl Methadone HCl 30 mg/ Methadone (HCl 5 mg) 35 mg PO DAILY [facility] Last Admin: 04/23/17 13:51 Dose: Not Given Morphine Sulfate (Morphine) 2 mg IVP Q4H PRN PRN Reason: Pain, severe (8-10) Last Admin: 04/24/17 08:59 Dose: 2 mg Multivitamins (Thera Tab) 1 tab PO 0800 [facility] Last Admin: 04/24/17 08:24 Dose: 1 tab Potassium Phos/Sodium Phos (Neutra-Phos) 1 pkt PO BID [facility] Last Admin: 04/23/17 18:06 Dose: 1 pkt Thiamine HCl (Vitamin B1 Tab) 100 mg PO DAILY [facility] Last Admin: 04/23/17 10:25 Dose: 100 mg Results - Vital Signs Recent Vital Signs: Last Vital Signs Temp 98.9 F 04/24/17 08:11 Pulse 103 H 04/24/17 08:11 Resp 18 04/24/17 08:11 BP 110/74 04/24/17 08:11 Pulse Ox 95 04/24/17 08:11 - Labs Result Diagrams: 04/24/17 06:00 04/24/17 06:00 Labs: Laboratory Results - last 24 hr 04/24/17 04/24/17 06:00 06:00 WBC 6.9 D RBC 2.98 L Hgb 8.9 L Hct 26.5 L MCV 88.9 MCH 29.9 MCHC 33.6 RDW 12.6 Plt Count 162 MPV 9.7 Gran % 52.5 Lymph % (Auto) 26.2 Hayes % (Auto) 18.4 H Eos % (Auto) 2.6 Baso % (Auto) 0.3 Gran # 3.64 Lymph # 1.8 Hayes # 1.3 H Eos # 0.2 Baso # 0.02 Sodium 133 Potassium 4.0 Chloride 99 Carbon Dioxide 25 Anion Gap 13 BUN 8 Creatinine 0.7 Est GFR ( Amer) > 60 Est GFR (Non-Af Amer) > 60 Random Glucose 108 Calcium 8.8 Total Bilirubin 0.8 AST 34 ALT 31 Alkaline Phosphatase 63 Total Protein 6.9 Albumin 3.8 Globulin 3.1 Albumin/Globulin Ratio 1.2 Attending/Attestation - Attestation I have personally seen and examined this patient.: Yes I have fully participated in the care of the patient.: Yes I have reviewed all pertinent clinical information: Yes
[2017-04-24] MEDS: Potassium & Sodium Phosphate PO SCH ×2 (10:47→18:06)
[2017-04-24] MEDS: Vancomycin 1gm in NS 250ml 1 GM/250 ML BAG IVPB SCH (10:48)
--- NOTE | 2017-04-24 12:28 | CP.PCM.CON ---
History of Present Illness - History of Present Illness History of Present Illness: 56 yo Male w/ PMH= Depression, ETOH abuse, h/o IVDU (on methadone), presented to the emergency room at [facility] on 04/22/17 with left lower extremity sensation of "pins and needles" for 2 days. Patient is a poor historian and seems to have multiple versions of the history to his presentation in the ER this admission. After evaluation by ER staff, there was discussion about DC home, patient became weak and tachycardic and began to describe pain in his right lower extremity at which point he was admitted to the medical team. He was evaluated by the primary care medical doctor, Dr. Cantrell, who determined that the L ankle was swollen and the patient reported pain localized to the L ankle as well and was unable to tolerate any weightbearing to the left lower extremity. Left ankle x-rays were done which revealed a displaced left ankle pilon Fracture with significant comminution and impaction. Orthopedic consultation was placed on 04/23/17, I evaluated the patient as an inpatient on . He also admits to having right femur fracture fixation surgery "" plate and screws" 2 years ago in [place]. He states that at baseline he ambulates with a cane and has significant pain localized to the right lower extremity with weightbearing since surgery. After spending a long time with the patient trying to get more detailed history out of him, he finally admitted to a fall from standing 3 days prior to admission landing on his L ankle resulting in pain, swelling and inability to weight-bear on the left lower extremity. The podiatry/wound care service was also consult in and evaluated the patient today as well, they performed bedside decompression of multiple fracture blisters and placement of sterile dressing as well as placement in a short leg splint. Review of imaging: X-rays L ankle: + Displaced, comminuted Pilon fracture involving the distal tibia articular surface and distal fibula,the joint services congruent and overall alignment is maintained with no evidence of dislocation. CT L ankle:+ Displaced, comminuted Pilon fracture involving the distal tibia articular surface and distal fibula,the joint services congruent and overall alignment is maintained with no evidence of dislocation. Past Patient History - Past Social History Smoking Status: Former Smoker - CARDIAC Hx Cardiac Disorders: No - PULMONARY Hx Respiratory Disorders: Yes (SMOKED CIGARETTES USED TO SMOKE PPD LASTS FOR 3 D.) - NEUROLOGICAL Hx Neurological Disorder: No - HEENT Hx HEENT Problems: No - RENAL Hx Chronic Kidney Disease: No - ENDOCRINE/METABOLIC Hx Endocrine Disorders: No - HEMATOLOGICAL/ONCOLOGICAL Hx Blood Disorders: No - INTEGUMENTARY Hx Dermatological Problems: Yes Other/Comment: 04-22-17 BILATERAL LEG EDEMA MORE TO LEFT. PT HAD A MECHANICAL FALL.TRIPPED AND FELL. LEFT LEG EDEMA +3 PITTING.WITH MULTIPLE LARGE FLUID FILLED BLISTER TO LOWER PART OF LEG AND PICKETT BONE FRONT AND BACK. INTACT LARGE BLISTER. ONE HAS OPENED COVERED WITH NON STICK DRESSING. RIGHT LEG EDEMA +2 .BILATERAL LEG HAS MULTIPLE REDSPOTS TO SKIN AND HAS BROWNISH SKIN DISCOLORATION. - MUSCULOSKELETAL/RHEUMATOLOGICAL Hx Musculoskeletal Disorders: Yes Hx Arthritis: Yes Hx Falls: Yes Hx Fractures: Yes (RIGHT FOOT HAS A PLATE FROM FALLING IN THE SNOW.) Hx Unsteady Gait: Yes - GASTROINTESTINAL Hx Gastrointestinal Disorders: No - GENITOURINARY/GYNECOLOGICAL Hx Genitourinary Disorders: No - PSYCHIATRIC Hx Psychophysiologic Disorder: Yes (DRINKS RHUM AND COKE,DRINKS OCCASIONALLY TO DAILY.SMOKED CIGARETTES,HEROINE) Hx Anxiety: Yes Hx Depression: Yes Hx Substance Use: Yes ([facility]INE ABUSE[facility]RS[facility] Other/Comment: PT ON METH PROGRAM IN [place] ON 35 MG.HAS BEEN THERE FOR 20 YRS. - SURGICAL HISTORY Hx Surgeries: Yes (RIGHT LEG ,HAS A PLATE.) Meds Allergies/Adverse Reactions: Allergies Allergy/AdvReac Type Severity Reaction Status Date / Time No Known Allergies Allergy Verified 04/22/17 19:40 - Medications Medications: Current Medications Amitriptyline HCl (Elavil) 50 mg PO HS [facility] Last Admin: 04/23/17 21:19 Dose: 50 mg Clonazepam (Klonopin) 0.5 mg PO HS [facility] PRN Reason: Protocol Last Admin: 04/23/17 21:19 Dose: 0.5 mg Docusate Sodium (Colace) 100 mg PO BID [facility] Last Admin: 04/24/17 10:46 Dose: 100 mg Famotidine (Pepcid) 20 mg IVP DAILY [facility] Last Admin: 04/24/17 10:47 Dose: 20 mg Folic Acid (Folic Acid) 1 mg PO DAILY [facility] Last Admin: 04/24/17 10:47 Dose: 1 mg Vancomycin HCl (Vancomycin 1gm) 1 gm in 250 mls @ 167 mls/hr IVPB DAILY [facility] PRN Reason: Protocol Last Admin: 04/24/17 10:48 Dose: 167 mls/hr Ampicillin Sodium/Sulbactam (Sodium 3 gm/ Sodium Chloride) 100 mls @ 200 mls/ hr IVPB Q6 [facility] PRN Reason: Protocol Last Admin: 04/24/17 05:25 Dose: 200 mls/hr Lorazepam (Ativan) 1 mg IVP Q4H PRN; Protocol PRN Reason: Symptoms of alcohol withdrawl Methadone HCl 30 mg/ Methadone (HCl 5 mg) 35 mg PO DAILY [facility] Last Admin: 04/24/17 10:42 Dose: 35 mg Morphine Sulfate (Morphine) 2 mg IVP Q4H PRN PRN Reason: Pain, severe (8-10) Last Admin: 04/24/17 08:59 Dose: 2 mg Multivitamins (Thera Tab) 1 tab PO 0800 [facility] Last Admin: 04/24/17 08:24 Dose: 1 tab Potassium Phos/Sodium Phos (Neutra-Phos) 1 pkt PO BID [facility] Last Admin: 04/24/17 10:47 Dose: 1 pkt Thiamine HCl (Vitamin B1 Tab) 100 mg PO DAILY [facility] Last Admin: 04/24/17 10:41 Dose: 100 mg Physical Exam - Extremities Exam Additional comments: right lower extremity: + Well-healed surgical wounds at the proximal lateral and distal lateral femur, (possible open reduction and placement of intramedullary nail versus true open reduction and internal fixation with plate and screws as the patient recalls) no area of tenderness to palpation, no swelling no warmth nor erythema, full range of motion at all joints without pain, +5/5 motor strength hip flexion/extension, knee flexion/extension, ankle dorsiflexion/plantarflexion, toes up and down Sensory intact L2-S1, deep peroneal nerve/tibial nerves/superficial peroneal nerve 2+ dorsalis pedis pulse and brisk cap refill all toes Left lower extremity: + + Significant swelling globally at the ankle joint with multiple clean fracture blisters surrounding the distal tibia/pickett and ankle, no evidence of infection at the blisters Rest of extremity: - TTP, - swelling//erythema, - instability, range of motion without pain at hip and knee +5/5 motor strength hip flexion/extension, knee flexion/extension, toes up and down, +4/5 ankle dorsiflexion/plantar flexion limited by pain Sensory intact L2-S1, deep peroneal nerve/tibial nerve/superficial peroneal nerve 2+ dorsalis pedis pulse and brisk cap refill all toes Results - Vital Signs Recent Vital Signs: Last Vital Signs Temp 98.9 F 04/24/17 08:11 Pulse 103 H 04/24/17 08:11 Resp 18 04/24/17 08:11 BP 110/74 04/24/17 08:11 Pulse Ox 95 04/24/17 08:11 - Labs Result Diagrams: 04/24/17 06:00 04/24/17 06:00 Labs: Laboratory Results - last 24 hr 04/24/17 04/24/17 06:00 06:00 WBC 6.9 D RBC 2.98 L Hgb 8.9 L Hct 26.5 L MCV 88.9 MCH 29.9 MCHC 33.6 RDW 12.6 Plt Count 162 MPV 9.7 Gran % 52.5 Lymph % (Auto) 26.2 Schley % (Auto) 18.4 H Eos % (Auto) 2.6 Baso % (Auto) 0.3 Gran # 3.64 Lymph # 1.8 Schley # 1.3 H Eos # 0.2 Baso # 0.02 Sodium 133 Potassium 4.0 Chloride 99 Carbon Dioxide 25 Anion Gap 13 BUN 8 Creatinine 0.7 Est GFR ( Amer) > 60 Est GFR (Non-Af Amer) > 60 Random Glucose 108 Calcium 8.8 Total Bilirubin 0.8 AST 34 ALT 31 Alkaline Phosphatase 63 Total Protein 6.9 Albumin 3.8 Globulin 3.1 Albumin/Globulin Ratio 1.2 Assessment & Plan (1) Closed left ankle fracture Assessment and Plan: 57 YO male , PMH = depression, EtOH abuse, history of IV drug use (currently on methadone) presented to the ER at [facility] on 04/22/17 with vague complaints of right lower extremity pins and needles, failed discharge due to tachycardia, eventual further investigation revealed L ankle swelling and pain with admitted fall 3 days ago. DX = L ankle displaced/comminuted pilon fracture (displaced comminuted fracture of the distal tibia articular surface and distal fibula/lateral malleolus) Plan: L ankle: -This is a very complex injury to the L ankle -Overall, joint is congruent with no dislocation or subluxation and overall alignment is maintained despite significant comminution and displacement of the fracture, there is also impaction of the distal tibia fracture presumably from weightbearing and ambulation -His treatment plan is further complicated by the baseline right lower extremity pain and difficulty with ambulation due to a history of a right femur fracture treated 2 years ago -He has attempted to work with ER staff to ambulate with crutches as well as physical therapy with no success as his right lower extremity pain is significant with ambulation -Today I personally evaluated his blisters and the soft tissue of the L ankle, placed sterile dressings on all the decompressed blister tissue surfaces, placed a well-padded long leg posterior and U-splint while maintaining overall neutral fracture alignment in good position. -I personally communicated this case with the orthopedic trauma service at [facility], Dr. Duran Reyes, he has accepted the patient for transfer for definitive treatment for this injury which most likely will include significant soft tissue wound care, initial stabilization with external fixator, after soft tissue injury improves and swelling improves possible conversion to ORIF at the judgment of Dr. Reyes who is a trained orthopedic traumatologist. With this significant injury, I feel that this patient would do much better under his care. -We need copies of all of his imaging sent with the patient on disc during the transfer for the team at [place] to review -In the interim until he transfers complete he is to be strict nonweightbearing left lower extremity -Ice and elevation left ankle -Keep the splint clean dry and intact at all times -medical and methadone managment per primary team Please contact me with any updates, questions, concerns at [phone] Thank you for allowing me to participate in the care of your patient Arianna Queen MD Orthopedic Surgeon Status: Acute
--- NOTE | 2017-04-24 17:14 | CP.PCM.PN ---
<Aj cOhoa - Last Filed: 04/24/17 17:07> Subjective - Date & Time of Evaluation Date of Evaluation: 04/24/17 Time of Evaluation: 09:00 - Subjective Subjective: Hospitalist progress note: Pt seen and examined at [facility]. Pt c/o minor LLE pain. He states podiatry placed his LLE in a splint this am. No other complaints. Denies any f/c, sob, palpitations, cp, abd pain, n/v/d, urinary or bm changes. Objective - Vital Signs/Intake and Output Vital Signs (last 24 hours): Temp Pulse Resp BP Pulse Ox 98.9 F 103 H 18 110/74 95 04/24/17 08:11 04/24/17 08:11 04/24/17 08:11 04/24/17 08:11 04/24/17 08:11 Intake and Output: 04/24/17 04/24/17 06:59 18:59 Intake Total 940 1350 Output Total 2800 Balance -1860 1350 - Medications Medications: Current Medications Amitriptyline HCl (Elavil) 50 mg PO HS [facility] Last Admin: 04/23/17 21:19 Dose: 50 mg Clonazepam (Klonopin) 0.5 mg PO HS [facility] PRN Reason: Protocol Last Admin: 04/23/17 21:19 Dose: 0.5 mg Docusate Sodium (Colace) 100 mg PO BID [facility] Last Admin: 04/24/17 10:46 Dose: 100 mg Famotidine (Pepcid) 20 mg IVP DAILY [facility] Last Admin: 04/24/17 10:47 Dose: 20 mg Folic Acid (Folic Acid) 1 mg PO DAILY [facility] Last Admin: 04/24/17 10:47 Dose: 1 mg Ampicillin Sodium/Sulbactam (Sodium 3 gm/ Sodium Chloride) 100 mls @ 200 mls/ hr IVPB Q6 [facility] PRN Reason: Protocol Last Admin: 04/24/17 12:30 Dose: 200 mls/hr Lorazepam (Ativan) 1 mg IVP Q4H PRN; Protocol PRN Reason: Symptoms of alcohol withdrawl Methadone HCl 30 mg/ Methadone (HCl 5 mg) 35 mg PO DAILY [facility] Last Admin: 04/24/17 10:42 Dose: 35 mg Morphine Sulfate (Morphine) 2 mg IVP Q4H PRN PRN Reason: Pain, severe (8-10) Last Admin: 04/24/17 12:31 Dose: 2 mg Multivitamins (Thera Tab) 1 tab PO 0800 [facility] Last Admin: 04/24/17 08:24 Dose: 1 tab Potassium Phos/Sodium Phos (Neutra-Phos) 1 pkt PO BID [facility] Last Admin: 04/24/17 10:47 Dose: 1 pkt Thiamine HCl (Vitamin B1 Tab) 100 mg PO DAILY [facility] Last Admin: 04/24/17 10:41 Dose: 100 mg - Labs Labs: 04/24/17 06:00 04/24/17 06:00 - Constitutional Appears: No Acute Distress - Head Exam Head Exam: ATRAUMATIC, NORMAL INSPECTION, NORMOCEPHALIC - Eye Exam Eye Exam: EOMI, Normal appearance, PERRL Pupil Exam: NORMAL ACCOMODATION, PERRL - ENT Exam ENT Exam: Mucous Membranes Moist, Normal Exam - Neck Exam Neck Exam: Full ROM, Normal Inspection. absent: Lymphadenopathy - Respiratory Exam Respiratory Exam: Clear to Ausculation Bilateral, NORMAL BREATHING PATTERN. absent: Wheezes - Cardiovascular Exam Cardiovascular Exam: REGULAR RHYTHM, RRR, +S1, +S2. absent: Murmur - GI/Abdominal Exam GI & Abdominal Exam: Soft, Normal Bowel Sounds. absent: Distended, Tenderness - Extremities Exam Extremities Exam: Full ROM, Normal Capillary Refill, Normal Inspection. absent : Joint Swelling, Pedal Edema Additional comments: LLE in splint placed by podiatry - Back Exam Back Exam: NORMAL INSPECTION - Neurological Exam Neurological Exam: Alert, Awake, CN II-XII Intact, Normal Gait, Oriented x3 - Psychiatric Exam Psychiatric exam: Normal Affect, Normal Mood - Skin Skin Exam: Dry, Intact, Normal Color, Warm Assessment and Plan - Assessment and Plan (Free Text) Assessment: 56 year old male, whose past medical history includes depression, alcohol abuse and IVDU, presented [facility] with left tib/fib/ankle fracture. 1. RLE tenderness/swelling -orthopedics consulted - recommended transfer pt to [facility] for OR and rehab after -podiatry consulted placed extremity in splint -LE Doppler showed no DVT's -Ankle xray showed comminuted intra-articular fractures of the distal L tibia and fibula with surrounding soft tissue swelling -CT of LLE comminuted intra-articular fractures of the distal L tibia and fibula and navicular and cuboid -IV unasyn -morphine for pain control 2mg Q4h 2. History of alcohol abuse/withdrawal -Ativan 1mg IVP Q4 PRN and Klonopin 0.5mg PO HS -folic acid, thiamine, MV -CIWA protocols 3. History of IVDU/addiction -cont methadone 35mg daily, per protocol 4. History of depression -cont home elavil 5. GI prophylaxis -Pepcid Patient seen and case discussed in detail with attending, Dr. Noonan. <Saran ALEJANDRA,Gracetorringtonjulianne - Last Filed: 04/24/17 17:32> Objective - Vital Signs/Intake and Output Vital Signs (last 24 hours): Temp Pulse Resp BP Pulse Ox 98.9 F 103 H 18 110/74 95 04/24/17 08:11 04/24/17 08:11 04/24/17 08:11 04/24/17 08:11 04/24/17 08:11 Intake and Output: 04/24/17 04/24/17 06:59 18:59 Intake Total 940 1350 Output Total 2800 Balance -1860 1350 - Medications Medications: Current Medications Amitriptyline HCl (Elavil) 50 mg PO HS [facility] Last Admin: 04/23/17 21:19 Dose: 50 mg Clonazepam (Klonopin) 0.5 mg PO HS [facility] PRN Reason: Protocol Last Admin: 04/23/17 21:19 Dose: 0.5 mg Docusate Sodium (Colace) 100 mg PO BID [facility] Last Admin: 04/24/17 17:17 Dose: 100 mg Famotidine (Pepcid) 20 mg IVP DAILY [facility] Last Admin: 04/24/17 10:47 Dose: 20 mg Folic Acid (Folic Acid) 1 mg PO DAILY [facility] Last Admin: 04/24/17 10:47 Dose: 1 mg Ampicillin Sodium/Sulbactam (Sodium 3 gm/ Sodium Chloride) 100 mls @ 200 mls/ hr IVPB Q6 [facility] PRN Reason: Protocol Last Admin: 04/24/17 12:30 Dose: 200 mls/hr Lorazepam (Ativan) 1 mg IVP Q4H PRN; Protocol PRN Reason: Symptoms of alcohol withdrawl Methadone HCl 30 mg/ Methadone (HCl 5 mg) 35 mg PO DAILY [facility] Last Admin: 04/24/17 10:42 Dose: 35 mg Morphine Sulfate (Morphine) 2 mg IVP Q4H PRN PRN Reason: Pain, severe (8-10) Last Admin: 04/24/17 17:12 Dose: 2 mg Multivitamins (Thera Tab) 1 tab PO 0800 [facility] Last Admin: 04/24/17 08:24 Dose: 1 tab Potassium Phos/Sodium Phos (Neutra-Phos) 1 pkt PO BID [facility] Last Admin: 04/24/17 10:47 Dose: 1 pkt Thiamine HCl (Vitamin B1 Tab) 100 mg PO DAILY [facility] Last Admin: 04/24/17 10:41 Dose: 100 mg - Labs Labs: 04/24/17 06:00 04/24/17 06:00 Attending/Attestation - Attestation I have personally seen and examined this patient.: Yes I have fully participated in the care of the patient.: Yes I have reviewed all pertinent clinical information, including history, physical exam and plan: Yes Notes (Text): 04/24/17 17:26 Patient was seen and examined with medical records coder. Agreed with resident assessment and plan. Management plan was discussed in detail with patient Education was provided. 57 YO male with PMH of depression, EtOH abuse, history of IV drug use ( currently on methadone) with L ankle displaced/comminuted pilon fracture ( displaced comminuted fracture of the distal tibia articular surface and distal fibula/lateral malleolus, pattient was evaluated by Orthopediac, case was discussed by Dr.El Cormier with ortho at [facility] , patient has been accepted by Dr.Mark Gonzalez .He will be transferred over there once bed is available. There is no sign of alcohol withdrawal at this time.
[2017-04-24 17:32] VITALS: RESP 20
--- NOTE | 2017-04-24 17:45 | RAD ---
PROCEDURE: RIGHT FEMUR RADIOGRAPHS HISTORY: h/o of ld trauma and surgery R femur COMPARISON: NONE TECHNIQUE: Frontal and lateral views of the right inferior been submitted for evaluation of pain. FINDINGS: There is no acute fracture dislocation appreciated involving the right femur including the knee and the hip. Pain status post open reduction and internal fixation of a complex fracture of the mid to distal right femur which appears healed with fixation via a lengthy compression plate laterally at least 9 compression screws. Diffuse osteopenia suggests osteoporosis. Local soft tissues appear diffusely unremarkable. Incidental note is made of end-stage osteoarthritis of the right hip joint without protrusio. IMPRESSION: No definite acute fracture or dislocation. Acute fractures at the is clinically questioned then follow-up CT is strongly advised particularly through the old fracture site.
[2017-04-25] MEDS: Ampicillin/Sulbactam 3 GM in Sodium Chloride 0.9% 100 ML IVPB SCH ×3 (00:24→12:24)
[2017-04-25 06:55] LABS: ALB/GLOB RATIO 1.1 (1.1-1.8); ALBUMIN 3.3 g/dL (3.0-4.8); ALT/SGPT 29 U/L (7-56); AST/SGOT 38 U/L (15-59); BLOOD UREA NITROGEN 8 mg/dL (7-21); CALCIUM 8.5 mg/dL (8.4-10.5); GFR AFRICAN-AMERICAN > 60; GFR NON-AFRICAN AMERICAN > 60
[2017-04-25 07:27] LABS: BASO # 0.02 K/mm3 (0.0-2.0); BASO % 0.3 % (0.0-3.0); EOS # 0.4 (0.0-0.7); EOS % 6.9 % (1.5-5.0); GRAN # 3.09 (1.4-6.5); GRAN % 51.6 % (50.0-68.0); LYMPH # 1.5 (1.2-3.4); LYMPH % 25.8 % (22.0-35.0); MEAN CELL VOLUME 89.1 fL (80.0-105.0); MEAN CORPUSCULAR HEMOGLOBIN 30.5 pg (25.0-35.0); MEAN CORPUSCULAR HGB CONC 34.2 g/dl (31.0-37.0); MEAN PLATELET VOLUME 9.5 fl (7.0-11.0); MONO # 0.9 (0.1-0.6); MONO % 15.4 % (1.0-6.0); PLATELET COUNT 157 10^3/uL (120.0-450.0); RBC 2.56 10^6/uL (3.5-6.1); RED CELL DISTRIBUTION WIDTH 12.5 % (11.5-14.5)
[2017-04-25 07:47] LABS: HEMOGLOBIN 7.8 gm/dL (14.0-18.0)
[2017-04-25 07:48] VITALS: BP 102/69; TEMP 98.5; O2SAT 94
[2017-04-25] MEDS: Morphine 2 mg/ml ISec IVP PRN (09:41)
[2017-04-25] MEDS: Potassium & Sodium Phosphate PO SCH (09:43)
[2017-04-25] MEDS: Multivitamin Therapeutic Tab PO SCH (09:44)
[2017-04-25 09:57] LABS: % IRON SATURATION 7 % (20-55); IRON 17 ug/dL (45-180); TOTAL IRON BINDING CAPACITY 256 ug/dL (261-462)
[2017-04-25 10:56] VITALS: PULSE 120
[2017-04-25 11:49] LABS: FOLATE 12.7 ng/mL
--- NOTE | 2017-04-25 12:55 | CP.PCM.PN ---
Subjective - Date & Time of Evaluation Date of Evaluation: 04/25/17 Time of Evaluation: 11:00 - Subjective Subjective: 57 y/o male seen at bedside for left extremity pilon fracture. Pt is AAOx3 and is in NAD. Pt states that he has been staying off his leg. Pt states that his dressing was changed yesterday by Dr. Jarret Cormier. Pt denies of any acute overnight events. Pt states that he has occasional discomfort on he left lower extremity and feels pain shooting up the leg. Pt denies of any recent F/N/V/C/ SOB. Pt denies of any other pedal complains at this time. Objective - Vital Signs/Intake and Output Vital Signs (last 24 hours): Temp Pulse Resp BP Pulse Ox 98.5 F 120 H 20 102/69 94 L 04/25/17 07:47 04/25/17 10:00 04/25/17 07:47 04/25/17 07:47 04/25/17 07:47 Intake and Output: 04/25/17 04/25/17 06:59 18:59 Intake Total 2170 0 Output Total 600 1650 Balance 1570 -1650 - Medications Medications: Current Medications Amitriptyline HCl (Elavil) 50 mg PO HS [facility] Last Admin: 04/24/17 21:38 Dose: 50 mg Clonazepam (Klonopin) 0.5 mg PO HS [facility] PRN Reason: Protocol Last Admin: 04/24/17 21:38 Dose: 0.5 mg Docusate Sodium (Colace) 100 mg PO BID [facility] Last Admin: 04/25/17 09:42 Dose: 100 mg Famotidine (Pepcid) 20 mg IVP DAILY [facility] Last Admin: 04/25/17 09:42 Dose: 20 mg Folic Acid (Folic Acid) 1 mg PO DAILY [facility] Last Admin: 04/25/17 09:43 Dose: 1 mg Ampicillin Sodium/Sulbactam (Sodium 3 gm/ Sodium Chloride) 100 mls @ 200 mls/ hr IVPB Q6 [facility] PRN Reason: Protocol Last Admin: 04/25/17 12:24 Dose: 200 mls/hr Lorazepam (Ativan) 1 mg IVP Q4H PRN; Protocol PRN Reason: Symptoms of alcohol withdrawl Methadone HCl 30 mg/ Methadone (HCl 5 mg) 35 mg PO DAILY [facility] Last Admin: 04/25/17 09:43 Dose: 35 mg Morphine Sulfate (Morphine) 2 mg IVP Q4H PRN PRN Reason: Pain, severe (8-10) Last Admin: 04/25/17 09:41 Dose: 2 mg Multivitamins (Thera Tab) 1 tab PO 0800 [facility] Last Admin: 04/25/17 09:44 Dose: 1 tab Potassium Phos/Sodium Phos (Neutra-Phos) 1 pkt PO BID [facility] Last Admin: 04/25/17 09:43 Dose: 1 pkt Thiamine HCl (Vitamin B1 Tab) 100 mg PO DAILY [facility] Last Admin: 04/25/17 09:44 Dose: 100 mg - Labs Labs: 04/25/17 06:00 04/25/17 06:00 - Constitutional Appears: Well, Non-toxic, No Acute Distress - Extremities Exam Additional comments: Left Lower Extremity Focused: Posterior splint dressing as well as high leg dressing is clean, dry and intact with no active drainage from the site noted, DIRECTORY OPERATOR: < 3 sec to all the digits - Neurological Exam Neurological Exam: Alert, Awake, Oriented x3 - Psychiatric Exam Psychiatric exam: Normal Affect, Normal Mood Assessment and Plan - Assessment and Plan (Free Text) Assessment: 57 y/o male seen at bedside for left lower extremity pilon fracture Plan: Pt seen and evaluated with Dr. Granados Vitals and labs reviewed (afebrile, WBC @ 6.0) Pt is being followed by an orthopedic surgeon Dr. Jarret Cormier - Dr. Jarret Cormier plans to send the patient to [facility] to an orthopedic traumatologist Dr. Reyes who has accepted the patient for transfer for treatment Podiatry will follow patient while patient is in house
--- NOTE | 2017-04-25 13:47 | CP.PCM.PN ---
<NazaninHarsha - Last Filed: 04/25/17 13:37> Subjective - Date & Time of Evaluation Date of Evaluation: 04/25/17 Time of Evaluation: 08:55 - Subjective Subjective: [facility]. Pt c/o minor LLE pain. Denies any f/c, sob, palpitations, cp, abd pain, n/v/d, urinary or bm changes. Splint on leg since yesterday. Pt accepted by Dr. Duran Gonzalez since yesterday at [facility]. Awaiting bed. No further complaints Objective - Vital Signs/Intake and Output Vital Signs (last 24 hours): Temp Pulse Resp BP Pulse Ox 98.5 F 120 H 20 102/69 94 L 04/25/17 07:47 04/25/17 10:00 04/25/17 07:47 04/25/17 07:47 04/25/17 07:47 Intake and Output: 04/25/17 04/25/17 06:59 18:59 Intake Total 2170 0 Output Total 600 1650 Balance 1570 -1650 - Medications Medications: Current Medications Amitriptyline HCl (Elavil) 50 mg PO HS [facility] Last Admin: 04/24/17 21:38 Dose: 50 mg Clonazepam (Klonopin) 0.5 mg PO HS [facility] PRN Reason: Protocol Last Admin: 04/24/17 21:38 Dose: 0.5 mg Docusate Sodium (Colace) 100 mg PO BID [facility] Last Admin: 04/25/17 09:42 Dose: 100 mg Famotidine (Pepcid) 20 mg IVP DAILY [facility] Last Admin: 04/25/17 09:42 Dose: 20 mg Folic Acid (Folic Acid) 1 mg PO DAILY [facility] Last Admin: 04/25/17 09:43 Dose: 1 mg Ampicillin Sodium/Sulbactam (Sodium 3 gm/ Sodium Chloride) 100 mls @ 200 mls/ hr IVPB Q6 [facility] PRN Reason: Protocol Last Admin: 04/25/17 12:24 Dose: 200 mls/hr Lorazepam (Ativan) 1 mg IVP Q4H PRN; Protocol PRN Reason: Symptoms of alcohol withdrawl Methadone HCl 30 mg/ Methadone (HCl 5 mg) 35 mg PO DAILY [facility] Last Admin: 04/25/17 09:43 Dose: 35 mg Morphine Sulfate (Morphine) 2 mg IVP Q4H PRN PRN Reason: Pain, severe (8-10) Last Admin: 04/25/17 09:41 Dose: 2 mg Multivitamins (Thera Tab) 1 tab PO 0800 [facility] Last Admin: 04/25/17 09:44 Dose: 1 tab Potassium Phos/Sodium Phos (Neutra-Phos) 1 pkt PO BID [facility] Last Admin: 04/25/17 09:43 Dose: 1 pkt Thiamine HCl (Vitamin B1 Tab) 100 mg PO DAILY [facility] Last Admin: 04/25/17 09:44 Dose: 100 mg - Labs Labs: 04/25/17 06:00 04/25/17 06:00 - Additional Findings Additional findings: Phys Exam: VS as above Constitutional: a&o x 4, nad Head and Neck: neck supple, no jvd, trachea midline, carotid midline, no cervical/head mass Eyes: vern, nonicteric sclera, eom intact ENT: auditory acuity grossly intact, throat not congested, no nasal deformity Cardio: rrr, no m/r/g, no carotid bruit, nml s1, s2 Pulm: no accessory muscle use, equal nml breath sounds bilaterally, ctab Abd: s/nt/nd, nbs x 4 q, no palpable masses Derm: no rashes, no ulcers, no lesions Extr:+LLE in splint; LLE has tenderness and swelling; no calf tenderness, no varicosities Neuro: cn II-XII grossly intact, ue and le 5/5 muscle strength bilaterally, no los ue, le bilaterally and core Assessment and Plan - Assessment and Plan (Free Text) Assessment: 56 year old male, whose past medical history includes depression, alcohol abuse and IVDU, [place] [facility] [place] tib/fib/ankle fracture. 1. RLE tenderness/swelling -orthopedics consulted - recommended transfer pt to [facility] for OR and rehab after -podiatry consulted placed extremity in splint -LE Doppler showed no DVT's -Ankle xray showed comminuted intra-articular fractures of the distal L tibia and fibula with surrounding soft tissue swelling -CT of LLE comminuted intra-articular fractures of the distal L tibia and fibula and navicular and cuboid -IV unasyn -morphine for pain control 2. Anemia - recheck hbg and hct at 1400 - transfuse if below 8.5 3. History of alcohol abuse/withdrawal -Ativan 1mg IVP Q4 PRN and Klonopin 0.5mg PO HS -folic acid, thiamine, MV -CIWA protocols 4. History of IVDU/addiction -cont methadone 35mg daily, per protocol 5. History of depression -cont home elavil 6. GI prophylaxis -Pepcid -scd right leg Patient seen and case discussed in detail with attending, Dr. Noonan. <Saran ALEJANDRA,Óscar - Last Filed: 04/25/17 16:50> Objective - Vital Signs/Intake and Output Vital Signs (last 24 hours): Temp Pulse Resp BP Pulse Ox 98.5 F 120 H 20 102/69 94 L 04/25/17 07:47 04/25/17 10:00 04/25/17 07:47 04/25/17 07:47 04/25/17 07:47 Intake and Output: 04/25/17 04/25/17 06:59 18:59 Intake Total 2170 1050 Output Total 600 2950 Balance 1570 -1900 - Medications Medications: Current Medications Amitriptyline HCl (Elavil) 50 mg PO HS [facility] Last Admin: 04/24/17 21:38 Dose: 50 mg Clonazepam (Klonopin) 0.5 mg PO HS [facility] PRN Reason: Protocol Last Admin: 04/24/17 21:38 Dose: 0.5 mg Docusate Sodium (Colace) 100 mg PO BID [facility] Last Admin: 04/25/17 09:42 Dose: 100 mg Famotidine (Pepcid) 20 mg IVP DAILY [facility] Last Admin: 04/25/17 09:42 Dose: 20 mg Folic Acid (Folic Acid) 1 mg PO DAILY [facility] Last Admin: 04/25/17 09:43 Dose: 1 mg Ampicillin Sodium/Sulbactam (Sodium 3 gm/ Sodium Chloride) 100 mls @ 200 mls/ hr IVPB Q6 [facility] PRN Reason: Protocol Last Admin: 04/25/17 12:24 Dose: 200 mls/hr Lorazepam (Ativan) 1 mg IVP Q4H PRN; Protocol PRN Reason: Symptoms of alcohol withdrawl Last Admin: 04/25/17 15:32 Dose: 1 mg Methadone HCl 30 mg/ Methadone (HCl 5 mg) 35 mg PO DAILY [facility] Last Admin: 04/25/17 09:43 Dose: 35 mg Morphine Sulfate (Morphine) 2 mg IVP Q4H PRN PRN Reason: Pain, severe (8-10) Last Admin: 04/25/17 09:41 Dose: 2 mg Multivitamins (Thera Tab) 1 tab PO 0800 [facility] Last Admin: 04/25/17 09:44 Dose: 1 tab Potassium Phos/Sodium Phos (Neutra-Phos) 1 pkt PO BID [facility] Last Admin: 04/25/17 09:43 Dose: 1 pkt Thiamine HCl (Vitamin B1 Tab) 100 mg PO DAILY [facility] Last Admin: 04/25/17 09:44 Dose: 100 mg - Labs Labs: 04/25/17 06:00 04/25/17 06:00 Attending/Attestation - Attestation I have personally seen and examined this patient.: Yes I have fully participated in the care of the patient.: Yes I have reviewed all pertinent clinical information, including history, physical exam and plan: Yes Notes (Text): 04/25/17 16:48 Patient was seen and examined with health care / medical job titles. 57 Yrs old male with PMH of depression, EtOH abuse, history of IV drug use ( currently on methadone) with L ankle displaced/comminuted pilon fracture ( displaced comminuted fracture of the distal tibia articular surface and distal fibula/lateral malleolus, pattient was evaluated by Orthopediac, case was discussed by Dr.El Cormier with ortho at [facility] , patient has been accepted by Dr.Mark Gonzalez .He will be transferred over there once bed is available. There is no sign of alcohol withdrawal at this time. Patient hemoglobin has dropped to 7.8.He denies any bleeding per rectum, hemetemesis or melena.Patient is asymptometic.We will check reticulocyte count, iron profile, will monitor hemolglobin, will transfuse if hemoglobin is less than 7.5 Management plan was discussed in detail with patient Education was provided.
== END 2017-04-25 19:06 | disposition short-term general hospital (02) ==
LOC: ED 06:34 → ERH 15:56 → 3RNO 18:37
PROVIDERS: ADMIT Internal Medicine; ATTEND Internal Medicine
DX: S82.872A Displaced pilon fracture of left tibia, initial encounter for closed fracture (principal); L03.116 Cellulitis of left lower limb; F32.9 Major depressive disorder, single episode, unspecified; F10.10 Alcohol abuse, uncomplicated; F11.20 Opioid dependence, uncomplicated; D64.9 Anemia, unspecified; Y90.6 Blood alcohol level of 120-199 mg/100 ml; W01.0XXA Fall on same level from slipping, tripping and stumbling without subsequent striking against object, initial encounter; Y92.830 Public park as the place of occurrence of the external cause; Z87.891 Personal history of nicotine dependence
CPT/HCPCS: 36415; 71020; 73551; 73610; 73700; 80053; 80320; 81003; 82550; 82607; 82728; 82746; 83540; 83550; 83615; 83690; 83735; 83880; 84100; 84484; 85025; 85044; 87040; 93005; 93970; 96365; 96366; 96367; 96372; 96375; 96376; 97162; 97530; 99285; G0378; G8978; G8979; J0295; J0360; J0696; J1885; J2060; J2270; J3411; J7040; J7042